=== PATIENT | female | born 2005 | race Asian ===

== ENCOUNTER 2025-04-19 00:17 | Emergency (ER) | payer MEDICAID, OTHER ==
[~2025-04-19] VITALS: Ht 170.2 cm; Wt 78.7 kg
[2025-04-19 01:36] VITALS: BP 107/75; PULSE 98; RESP 16; TEMP 98.9; O2SAT 98
[2025-04-19 09:09] LABS: Urine Bacteria None Seen /hpf (None Seen)
[2025-04-19 09:17] LABS: Urine Blood Negative /uL (Negative); Urine Clarity Clear (Clear); Urine Protein, UAD Negative (Negative); Urine Specific Gravity 1.004 (1.001-1.035); Urine Squamous Epithelial Cell FEW /hpf (<5); Urine Urobilinogen Normal (Negative); Urine WBC < 1 /HPF (0-5); Urine pH 6.5 (5.0-9.0)
[2025-04-19 09:44] LABS: Urine Color Light-Yellow (Yellow)
== END 2025-04-19 02:48 | disposition left against medical advice (07) ==
LOC: ER 00:20
DX: M54.50 Low back pain, unspecified (principal); Z53.21 Procedure and treatment not carried out due to patient leaving prior to being seen by health care provider
CPT/HCPCS: 81001; 81025

== ENCOUNTER 2025-04-19 07:06 | Emergency (ER) | payer MEDICAID ==
[~2025-04-19] VITALS: Ht 170.2 cm; Wt 68.3 kg
--- NOTE | 2025-04-19 07:21 | ED.PDOC ---
History of Present Illness HPI Comments 19 year old female presents to the ED with a chief complaint of anxiety onset 2 days. Patient states she has been experiencing anxiety for the past 2 days causing generalized body aches, has not been able to sleep for the past day. Patient states she has been under stress recently, had to withdraw for a seme ster from [facility]. Denies any PMHx as well as SI, HI, chest pain, dizziness, headache, blurry vision, abdominal pain, nausea, vomiting, fevers, chills, dysuria. No other symptoms or modifying factors present at this time. Time Seen by MD: 07:15 Reviewed Notes: Medications, Allergies Allergies: Coded Allergies: NO KNOWN ALLERGIES (Unverified , 04/19/25) Information Source: Patient Mode of Arrival: Ambulatory Severity: Moderate Timing: Days Duration: Since onset Prehospital treatment: None Past Medical History PAST MEDICAL HISTORY: Denies Surgical History: Denies all surgeries FINISHER POLISHER History: No Pertinent FINISHER POLISHER History Family History Family History: Reviewed,noncontributory to illness, No family hx of Cancer, No family hx of DM, No family hx of Heart debbie, No family hx of HTN, No family hx ofKidney debbie, No family hx of Liver debbie, No family hx of Lung debbie, No family hx of Stroke Social History Smoker: Non-Smoker Alcohol: Denies ETOH Use Drugs: Denies Drug Use Lives In: Home Constitutional: reports: others (generalzied body aches); denies: chills, diaphoresis, fatigue, fever, malaise, sweats, weakness EENTM: denies: blurred vision, double vision, ear bleeding, ear discharge, ear drainage, ear pain, ear ringing, eye pain, eye redness, hearing loss, mouth pain, mouth swelling, nasal discharge, nose bleeding, nose congestion, nose pain, photophobia, tearing, throat pain, throat swelling, voice changes, others Respiratory: denies: cough, hemoptysis, orthopnea, SOB at rest, shortness of breath, SOB with excertion, stridor, wheezing, others Cardiovascular: denies: chest pain, dizzy spells, diaphoresis, Dyspnea on exertion, edema, irregular heart beat, left arm pain, lightheadedness, palpitations, PND, syncope, others Gastrointestinal: denies: abdomen distended, abdominal pain, blood streaked bowels, constipated, diarrhea, dysphagia, difficulty swallowing, hematemesis, me alejandrina, nausea, poor appetite, poor fluid intake, rectal bleeding, rectal pain, vomiting, others Genitourinary: denies: abnormal vagina bleeding, burning, dyspareunia, dysuria, flank pain, frequency, hematuria, incontinence, pain, , vagina discharge, urgency, others Neurological: denies: dizziness, fainting, headache, left sided numbness, left sided weakness, numbness, paresthesia, pre-existing deficit, right sided numbness, right sided weakness, seizure, speech problems, tingling, tremors, weakness, others Musculoskeletal: denies: back pain, gout, joint pain, joint swelling, muscle pain, muscle stiffness, neck pain, others Integumetry: denies: bruises, change in color, change in hair/nails, dryness, laceration, lesions, lumps, rash, wounds, others Allergic/Immunocompromised: denies: Difficulty Healing, Frequent Infections, Hives, Itching, others Hematologic/Lymphatic: denies: anemia, blood clots, easy bleeding, easy bruising, swollen glands, others Endocrine: denies: excessive hunger, excessive sweating, excessive thirst, excessive urination, flushing, intolerance to cold, intolerance to heat, unexplained weight gain, unexplained weight loss, others Psychiatric: reports: anxiety; denies: bipolar disorder, depression, hopeless, panic disorder, schizophrenia, sleepless, suicidal, others All Other Systems: Reviewed and Negative Physical Exam General Appearance: No Apparent Distress, Normal HEENT: Normal ENT Inspection, Pharynx Normal, TMs Normal Neck: Full Range of Motion, Non-Tender, Normal, Normal Inspection Respiratory: Chest Non-Tender, Lungs Clear, No Accessory Muscle Use, No Respiratory Distress, Normal Breath Sounds Cardiovascular: No Edema, No JVD, No Murmur, No Gallop, Normal Peripheral Pulses, Regular Rate/Rhythm Breast Exam: Deferred Gastrointestinal: No Organomegaly, Non Tender, No Pulsatile Mass, Normal Bowel Sounds, Soft Genitalia: Deferred Pelvic: Deferred Rectal: Deferred Extremities: No calf tenderness, Normal capillary refill, Normal inspection, Normal range of motion, Non-tender, No pedal edema Musculoskeletal : Apperance: Normal Neurologic: Alert, candle molder II-XII nml as Tested, No Motor Deficits, Normal Affect, Normal Mood, No Sensory Deficits Cerebellar Function: Normal Reflexes: Normal Skin: Dry, Normal Color, Warm Lymphatic: No Adenopathy Was a procedure done? Was a procedure done?: No Differential Dx Considerations may include: anxiety, conversion disorder, malingering, adjustment disorder, stress reaction X-Ray, Labs, Meds, VS Vital Signs Date Time Temp Pulse Resp B/P (MAP) Pulse Ox O2 Delivery O2 Flow Rate FiO2 04/19/25 10:33 98.1 61 16 105/65 (78) 96 98.1 04/19/25 08:41 97.8 71 16 114/69 (84) 96 97.8 04/19/25 07:19 99.6 88 20 111/75 (87) 95 99.6 Lab Test 04/19/25 07:20 04/19/25 06:00 Range/Units Urine Test Pending Urine Opiates Screen Neg NEGATIVE Urine Fentanyl Screen Neg NEGATIVE Urine Barbiturates Screen Neg NEGATIVE Urine Phencyclidine Screen Neg NEGATIVE Urine Amphetamines Screen Neg NEGATIVE Urine Benzodiazepines Screen Neg NEGATIVE Urine Cocaine Screen Neg NEGATIVE Urine Cannabinoids Screen Neg NEGATIVE Plasma/Serum Blood Alcohol < 3.0 <10 mg/dL Current Medications Medications (Trade) Dose Ordered Sig/[place] Route Start Time Stop Time Status Last Admin Alprazolam (Xanax Tablet) 0.5 mg ONCE ONCE PO 04/19/25 07:30 04/19/25 07:31 DC 04/19/25 08:10 Time of 1ST Reevaluation: 07:45 Reevaluation 1ST: Unchanged Patient Education/Counseling: Diagnosis, Treatment, Prognosis Family Education/Counseling: No Family Present Additional Information Previous visits reviewed: 04/19/25 - patient left prior to being seen I discussed treatment and results with medical personnel and: patient Comprehensive systems review obtained and negative except for what is stated in the HPI. pt was improved and calm and cooperative, but eloped before psych can assess her to arrange for care and resources Departure 1 Departure Time of Disposition: 11:14 Impression: Primary Impression: Anxiety Additional Impression: Stress and adjustment reaction Disposition: 07 LEFT AWOL/ELOPED Condition: Other (unknown) Critical Care Note Critical Care Time?: No Stability Stability form required: No I personally scribed for JOSEPH PIZANO MD ([email or web address]) on 04/19/25 at 07:21. Electronically submitted by Regina Graham ([email or web address]). I personally scribed for JOSEPH PIZANO MD ([email or web address]) on 04/19/25 at 07:22. Electronically submitted by Regina Graham ([email or web address]). I personally scribed for JOSEPH PIZANO MD ([email or web address]) on 04/19/25 at 07:26. Electronically submitted by Regina Graham ([email or web address]). JOSEPH PIZANO MD April 19, 2025 07:21
[2025-04-19] MEDS: ALPRAZolam 0.5 MG TAB PO ONE (08:10)
[2025-04-19 10:33] VITALS: BP 105/65; PULSE 61; RESP 16; TEMP 98.1; O2SAT 96
[2025-04-19 10:34] LABS: Amphetamine Screen, Urine Neg (NEGATIVE); Barbiturate Scree,Urine Neg (NEGATIVE); Benzodiazephine Screen, Urine Neg (NEGATIVE); Cannabinoid Screen, Urine Neg (NEGATIVE); Cocaine Screen, Urine Neg (NEGATIVE); Opiate Scree,Urine Neg (NEGATIVE); Phencyclidine Screen, Urine Neg (NEGATIVE)
== END 2025-04-19 12:03 | disposition left against medical advice (07) ==
LOC: ER 07:10
DX: F43.22 Adjustment disorder with anxiety (principal)
CPT/HCPCS: 36415; 80307; 80320; 81025